=== PATIENT | male | born 1960 | race African-American/Black ===

== ENCOUNTER 2021-07-19 17:02 | Inpatient (IN) | payer SELFPAY ==
[~2021-07-19] VITALS: Ht 182.9 cm; Wt 127.1 kg
[2021-07-19 17:53] LABS: BASOPHILS % 0.2 % (0.0-2.0); EOSINOPHILS % 2.6 % (0.0-5.0); HEMATOCRIT. 39.4 % (42.0-52.0); HEMOGLOBIN. 13.9 g/dL (14.0-18.0); MEAN CORPUSCULAR HEMOGLOBIN 29.8 pg (28.0-32.0); MEAN CORPUSCULAR VOLUME 84.7 fL (80.0-94.0); MEAN PLATELET VOLUME 8.2 fl (7.4-10.4); MONOCYTES % 14.6 % (2.0-8.0); NEUTROPHILS % 45.6 % (40.0-76.0); PLATELET 370 x1000/uL (130-400); RED BLOOD CELL COUNT 4.65 mill/uL (4.7-6.1); RED CELL DISTRIBUTION WIDTH 13.6 % (11.6-14.6)
[2021-07-19 18:00] LABS: CHLORIDE 106 mEq/L (98-107)
[2021-07-19] MEDS ORDERED: ASPIRIN 325MG EC TABLET PO ONE (21:30)
[2021-07-19] MEDS ORDERED: LABETALOL HCL VIAL 20 MG/4 ML VIAL IV ONE (21:30)
[2021-07-19] MEDS ORDERED: LABETALOL 5MG/ML SYR 20 MG/4 ML SYRINGE IV NR (21:45)
[2021-07-20] MEDS ORDERED: HYDROCODONE/ACETAMINOPHEN 5/325MG TABLET PO PRN (08:00)
[2021-07-20] MEDS ORDERED: IPRATROPIUM/ALBUTEROL 0.5-3(2.5)MG/3ML NEB HHN PRN (08:00)
[2021-07-20] MEDS ORDERED: DOCUSATE SODIUM 100MG CAPSULE PO PRN (08:00)
[2021-07-20] MEDS ORDERED: MAGNESIUM/ALUMINUM HYDROXIDE/SIMETHICONE 30ML UDC PO PRN (08:00)
[2021-07-20] MEDS ORDERED: ACETAMINOPHEN 325MG TABLET PO PRN (08:00)
[2021-07-20] MEDS ORDERED: ONDANSETRON HCL 4MG/2ML INJ IV PRN (08:00)
[2021-07-20] MEDS ORDERED: CLONIDINE 0.1MG TABLET PO PRN (08:00)
[2021-07-20] MEDS ORDERED: ENOXAPARIN 40MG/0.4ML SYR SUBCUT SCH (09:00)
[2021-07-20 10:00] VITALS: BP 182/113
[2021-07-20] MEDS ORDERED: NALOXONE HCL 0.4MG/ML VIAL IV PRN (11:15)
[2021-07-20 12:00] VITALS: BP 187/120
[2021-07-20] MEDS: NIFEDIPINE XL 60MG TAB PO SCH (12:56)
[2021-07-20 15:38] LABS: CREATINE KINASE 472 IU/L (39-308)
[2021-07-20 15:39] LABS: CREATINE KINASE MB FRACTION 1.9 ng/mL (0.5-3.6)
[2021-07-20 16:00] VITALS: BP 151/85
[2021-07-20 16:16] LABS: CHLORIDE 106 mEq/L (98-107)
[2021-07-20 16:24] LABS: LDL CHOLESTEROL 131 mg/dL (5-100)
[2021-07-20 16:25] LABS: HDL CHOLESTEROL 36 mg/dL (40-59)
[2021-07-20 20:00] VITALS: BP 162/100
[2021-07-20] MEDS: METOPROLOL TARTRATE 50MG TABLET PO SCH (20:16)
[2021-07-21] VITALS: BP 142/90
[2021-07-21 00:54] LABS: CREATINE KINASE 488 IU/L (39-308)
[2021-07-21 00:55] LABS: CREATINE KINASE MB FRACTION 1.4 ng/mL (0.5-3.6)
[2021-07-21 04:00] VITALS: BP 127/65
[2021-07-21 07:48] LABS: CHLORIDE 105 mEq/L (98-107)
[2021-07-21 08:00] VITALS: BP 152/87
[2021-07-21] MEDS ORDERED: ENOXAPARIN 30MG/0.3ML SYR SUBCUT SCH (09:00)
[2021-07-21] MEDS: NIFEDIPINE XL 60MG TAB PO SCH (09:09)
[2021-07-21] MEDS: METOPROLOL TARTRATE 50MG TABLET PO SCH (09:09)
[2021-07-21] MEDS ORDERED: METO-539 PO (10:35)
[2021-07-21] MEDS ORDERED: NIFE-32 PO (10:35)
[2021-07-21] MEDS ORDERED: REGADENOSON 0.4 MG/5 ML IV NR (10:45)
[2021-07-21 11:01] LABS: EOSINOPHILS % 2.8 % (0.0-5.0); HEMATOCRIT. 39.6 % (42.0-52.0); HEMOGLOBIN. 13.7 g/dL (14.0-18.0); LYMPHOCYTES % 34.2 % (20.0-50.0); MEAN CORPUSCULAR HEMOGLOBIN 29.5 pg (28.0-32.0); MEAN CORPUSCULAR VOLUME 85.7 fL (80.0-94.0); MEAN PLATELET VOLUME 7.8 fl (7.4-10.4); MONOCYTES % 14.8 % (2.0-8.0); NEUTROPHILS % 46.2 % (40.0-76.0); PLATELET 411 x1000/uL (130-400); RED BLOOD CELL COUNT 4.63 mill/uL (4.7-6.1); RED CELL DISTRIBUTION WIDTH 13.7 % (11.6-14.6)
[2021-07-21 12:00] VITALS: BP 151/96
[2021-07-21 13:58] VITALS: BP 151/96
== END 2021-07-21 14:50 | disposition home or self-care (01) | DRG 199 ==
LOC: ER 17:02 → MICUSO 21:32 → 8WST 07-20 11:05
PROVIDERS: ADMIT Internal Medicine; ATTEND Internal Medicine
DX: I16.1 Hypertensive emergency (principal); I47.2 Ventricular tachycardia; N17.9 Acute kidney failure, unspecified; I50.30 Unspecified diastolic (congestive) heart failure; D64.9 Anemia, unspecified; E11.22 Type 2 diabetes mellitus with diabetic chronic kidney disease; E78.5 Hyperlipidemia, unspecified; R00.2 Palpitations; Z20.822 Contact with and (suspected) exposure to COVID-19; R74.01 Elevation of levels of liver transaminase levels; I12.9 Hypertensive chronic kidney disease with stage 1 through stage 4 chronic kidney disease, or unspecified chronic kidney disease; N18.9 Chronic kidney disease, unspecified; D18.03 Hemangioma of intra-abdominal structures; Z79.84 Long term (current) use of oral hypoglycemic drugs
CPT/HCPCS: 36415; 71045; 76700; 80048; 80053; 80061; 82550; 82553; 83036; 83735; 83880; 84443; 84484; 85025; 85379; 87426; 93005; 93306; 93970; 99291; J1650; J3490